=== PATIENT | male | born 1960 | race Asian ===

== ENCOUNTER 2019-02-06 13:21 | Outpatient (CLI) | payer BC ==
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
== END 2019-02-06 13:22 | disposition home or self-care (01) ==
LOC: BICMRI 13:21
PROVIDERS: ATTEND Anesthesiology Pain Medicine
DX: S32.039A Unspecified fracture of third lumbar vertebra, initial encounter for closed fracture (principal); S80.12XA Contusion of left lower leg, initial encounter; M47.26 Other spondylosis with radiculopathy, lumbar region; M76.52 Patellar tendinitis, left knee; M22.42 Chondromalacia patellae, left knee; M51.16 Intervertebral disc disorders with radiculopathy, lumbar region
CPT/HCPCS: 72110; 72148